=== PATIENT | female | born 1945 | race Caucasian/White ===

== ENCOUNTER → 2020-01-22 09:39 | Outpatient (CLI) | payer MEDICARE, BC, SELFPAY ==
[2020-01-22 13:24] LABS: Coronavirus 19 IgG Antibody Negative (Negative); Coronavirus 19 IgM Antibody Negative (Negative)
== END ==
PROVIDERS: Visit Provider Internal Medicine Gastroenterology
DX: Z01.818 Encounter for other preprocedural examination (principal)
CPT/HCPCS: 36415; 86328

== ENCOUNTER 2020-01-25 11:13 | Day surgery (SDC) | payer MEDICARE, BC, SELFPAY ==
[2020-01-19 11:36] VITALS: BMI 23.2
[2020-01-25 11:48] VITALS: BP 139/53; PULSE 71; RESP 18; TEMP 36.6; O2SAT 97
[2020-01-25 12:32] VITALS: O2SAT 98
--- NOTE | 2020-01-25 12:49 | P.PCN_ITS ---
[facility] Procedure Note Procedure Note:: Upper Endoscopy Procedure Report: Esophagogastroduodenoscopy with cold biopsies and TTS balloon dilation Endoscopost: Daniel Lewis II, MD Referring Physician: Alpesh Sheldon MD Date of Procedure: January 25, 2020 Equipment: Olympus GIF 180 standard upper endoscope Sedation: MAC sedation Indications: Mrs. Keith is a 74-year-old female with nausea, lack of appetite and weight loss. She also has had epigastric abdominal discomfort which has been persistent. Her appetite is slightly improved. She does report burning in the mouth and tongue. The patient did have an ultrasound of the liver and gallbladder. She had a benign hepatic cyst but normal-appearing gallbladder. Her HIDA scan showed an 11% gallbladder ejection fraction. She did see Dr. Jin Lu and had cholecystectomy. Reglan has helped. She was not taking MiraLAX and Konsyl daily because the Konsyl upset her stomach. She does have symptoms of obstipation/incomplete bowel evacuation. Her CAT scan of the abdomen and pelvis on 10/21/2019 was normal except for some pyloric valve thickening. EGD is performed diagnostically. She does get some intermittent dysphagia. Procedure: Prior to the procedure, a history and physical exam was performed, and patient's medications and allergies were reviewed. The risks, benefits and alternatives of the sedation and procedure were discussed with the patient. All questions were answered and informed consent was obtained. The patient was brought to the procedure room. Patient identification and proposed procedure were verified by the physician and the nurse. The patient was placed in a left lateral decubitus position and the scope was passed under direct vision. Throughout the procedure, the patient's blood pressure, pulse, and oxygen saturations were monitored continuously. The upper GI endoscopy was accomplished without difficulty. The patient tolerated the procedure well. Findings: The scope was passed directly into the upper esophagus and advanced to the third portion of the duodenum. The post bulbar duodenum and duodenal bulb were normal with normal mucosa and conniventes. The scope was withdrawn through a normal duodenal bulb and pylorus into the stomach. There was moderate bile reflux with linear reactive gastropathy of the antrum and body of the stomach. The remainder of the antrum, body and fundus of the stomach were grossly normal. Upon retroflexion there was a very small 1 to 2 cm hiatal hernia. 2 biopsies were taken in the antrum and along the lesser curvature for histology to rule out gastritis and/or H pylori. The scope was then withdrawn into the esophagus. There was a distal esophageal ring/Schatzki's ring that was dilated from 18 to 20 mm (54-60 [place]ic) with a TTS hydrostatic balloon. There was no evidence of reflux esophagitis or Mason's. There were tertiary contractions and mild esophageal dysmotility. The remainder of the esophageal mucosa was normal. Impression: 1. Nonerosive GERD with mild esophageal dysmotility and very small 1 to 2 cm hiatal hernia 2. Schatzki's ring dilated to 20 mm 3. 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 We will discuss additional treatment options. I will follow-up the biopsies.
[2020-01-25 12:53] VITALS: BP 126/66; PULSE 70; RESP 18; TEMP 36.1; O2SAT 97
[2020-01-25 13:03] VITALS: BP 143/80; PULSE 72; RESP 18; O2SAT 98
[2020-01-25 13:13] VITALS: BP 162/78; PULSE 62; RESP 18; O2SAT 99
[2020-01-25 14:01] VITALS: BP 157/76; PULSE 68; RESP 18; O2SAT 99
== END 2020-01-25 14:04 | disposition home or self-care (01) ==
LOC: OUTP 11:17
PROVIDERS: PCP Family Medicine; Visit Provider Internal Medicine Gastroenterology
PROC: 0DJ08ZZ Inspection of Upper Intestinal Tract, Via Natural or Artificial Opening Endoscopic (ICD-10-PCS; CPT 43235; principal; 2020-01-25 12:30)
DX: K21.9 Gastro-esophageal reflux disease without esophagitis; K22.2 Esophageal obstruction; K44.9 Diaphragmatic hernia without obstruction or gangrene; K31.9 Disease of stomach and duodenum, unspecified; R63.0 Anorexia; Z68.23 Body mass index [BMI] 23.0-23.9, adult; I48.91 Unspecified atrial fibrillation; I10 Essential (primary) hypertension; F41.9 Anxiety disorder, unspecified; E78.5 Hyperlipidemia, unspecified; Z79.899 Other long term (current) drug therapy
CPT/HCPCS: 43239; 43249; 88305; C1726

== ENCOUNTER → 2020-03-21 09:41 | Outpatient (POV) | payer MEDICARE, BC, SELFPAY | PROVIDERS: Visit Provider Nurse Practitioner Family | DX: Z00.00 Encounter for general adult medical examination without abnormal findings (principal) ==